=== PATIENT | female | born 1940 | race African-American/Black ===

== ENCOUNTER 2019-07-13 07:37 | Day surgery (SDC) | payer OTHER, MEDICAID ==
[~2019-07-13] VITALS: Ht 167.6 cm; Wt 77.1 kg
[2019-07-13 09:26] LABS: HEMOGLOBIN 10.4 g/dL (12.0-16.0); MEAN CORPUSCULAR HEMOGLOBIN 22.9 pg (28.0-32.0); MEAN CORPUSCULAR VOLUME 72.2 fL (81.0-99.0); PLATELET 185 x1000/uL (130-400); RED BLOOD CELL COUNT 4.57 mill/uL (4.2-5.4); RED CELL DISTRIBUTION WIDTH 14.7 % (11.6-14.6)
[2019-07-13] MEDS ORDERED: METF-416 MT (09:36)
[2019-07-13] MEDS ORDERED: GLIP10TA10 MT (09:36)
[2019-07-13] MEDS ORDERED: AMLO2.5T45 MT (09:36)
[2019-07-13] MEDS ORDERED: ASPI-1393 MT (09:36)
[2019-07-13] MEDS ORDERED: LOSA1TAB37 MT (09:36)
[2019-07-13] MEDS ORDERED: ATOR40TA70 MT (09:36)
[2019-07-13] MEDS ORDERED: CARV6.2548 MT (09:36)
[2019-07-13] MEDS ORDERED: ACET-2178 MT (09:36)
[2019-07-13 09:42] LABS: PROTHROMBIN TIME 10.5 sec (9.6-11.0)
[2019-07-13] MEDS ORDERED: FENTANYL CITRATE/PF 50MCG/ML 2ML VIAL ONE (10:52)
[2019-07-13] MEDS ORDERED: MIDAZOLAM HCL 2 MG/2 ML VIAL ONE (10:52)
[2019-07-13] MEDS ORDERED: IODIXANOL 320MG/ML 100 ML BOTTLE IV ONE (10:52)
[2019-07-13] MEDS ORDERED: LIDOCAINE HCL 1% 20ML VIAL (Pyxis) INJ ONE (10:53)
[2019-07-13] MEDS ORDERED: ACETAMINOPHEN 325MG TABLET PO PRN (12:00)
[2019-07-13] MEDS ORDERED: MORPHINE SULFATE 2 MG/ML CPJ (NOT FOR IM USE) IV PRN (12:00)
[2019-07-13] MEDS ORDERED: ONDANSETRON HCL 4MG/2ML INJ IV PRN (12:00)
== END 2019-07-13 15:30 | disposition home or self-care (01) ==
LOC: CCL 07:37
PROVIDERS: ATTEND Internal Medicine Cardiovascular Disease
DX: R07.89 Other chest pain (principal); R94.39 Abnormal result of other cardiovascular function study; I25.10 Atherosclerotic heart disease of native coronary artery without angina pectoris; E11.9 Type 2 diabetes mellitus without complications; I11.0 Hypertensive heart disease with heart failure; I50.9 Heart failure, unspecified; E78.5 Hyperlipidemia, unspecified; Z79.84 Long term (current) use of oral hypoglycemic drugs; Z79.82 Long term (current) use of aspirin; Z79.899 Other long term (current) drug therapy
CPT/HCPCS: 36415; 80048; 85027; 85610; 93458; C1769; C1887; C1893; J1644; J2250; J3010; J3490; Q9967